=== PATIENT | female | born 1985 | race Caucasian/White ===

== ENCOUNTER 2016-05-11 04:36 | Emergency (ER) | payer OTHER ==
[~2016-05-11] VITALS: Ht 175.3 cm; Wt 72.6 kg
[2016-05-11 04:53] VITALS: BP 137/79
[2016-05-11 04:58] LABS: BILIRUBIN,URINE NEGATIVE (NEG); GLUCOSE,URINE NEGATIVE (NEG); NITRITE,URINE NEGATIVE (NEG); PH,URINE 5.5; PROTEIN,URINE NEGATIVE (NEG-TRACE); UROBILINOGEN,URINE 0.2 mg/dL (0.2 mg/dL)
[2016-05-11] MEDS ORDERED: KETOROLAC TROMETHAMINE 30 MG/ML SYRINGE. IV ONE (05:00)
[2016-05-11] MEDS ORDERED: IV NORMAL SALINE 500ML BAG 500 ML IV ONE (05:00)
--- NOTE | 2016-05-11 05:02 | PHYS DOC ---
Adult General Chief Complaint Chief Complaint: FLANK PAIN HPI HPI This is a 31 yo female who presents with right flank pain for the last two days. Pt states she just had a urinary tract infection and finished a course of Bactrim therapy which helped to relieve her dysuria type symptoms but then her right flank pain began two days after. She denies any nausea or vomiting. She rates her pain a 7/10 on the pain scale. She denies any abdominal pain. She states she is otherwise healthy and is not taking any medications. She denies any current dysuria or hematuria. Review of Systems Review of Systems Constitutional: Denies fever or chills [] Eyes: Denies change in visual acuity, redness, or eye pain [] HENT: Denies nasal congestion or sore throat [] Respiratory: Denies cough or shortness of breath [] Cardiovascular: No additional information not addressed in HPI [] GI: Denies abdominal pain, nausea, vomiting, bloody stools or diarrhea [] : Denies dysuria or hematuria [] Musculoskeletal: Denies back pain or joint pain [] Integument: Denies rash or skin lesions [] Neurologic: Denies headache, focal weakness or sensory changes [] Endocrine: Denies polyuria or polydipsia [] Current Medications Current Medications Current Medications Medications (Trade) Dose Ordered Sig/Shantal Start Time Stop Time Status Last Admin Dose Admin Ceftriaxone Sodium (Rocephin 1gm Ivpb For Omni) 50 ml @ 100 mls/hr 1X ONCE 05/11/16 06:00 05/11/16 06:29 DC 05/11/16 05:57 100 MLS/HR Ketorolac Tromethamine 30 mg 30 mg 1X ONCE 05/11/16 05:00 05/11/16 05:01 DC 05/11/16 05:11 30 MG Sodium Chloride (Iv Sodium Chloride 0.9% 500ml Bag) 500 ml @ 500 mls/hr 1X ONCE 05/11/16 05:00 05/11/16 05:59 DC 05/11/16 05:11 500 MLS/HR Allergies Allergies Allergies Coded Allergies Type Severity Reaction Last Updated Verified No Known Drug Allergies 05/11/16 No Physical Exam Physical Exam Constitutional: Well developed, well nourished, no acute distress, non-toxic appearance. [] HENT: Normocephalic, atraumatic, bilateral external ears normal, oropharynx moist, no oral exudates, nose normal. [] Eyes: PERRLA, EOMI, conjunctiva normal, no discharge. [] Neck: Normal range of motion, no tenderness, supple, no stridor. [] Cardiovascular:Heart rate regular rhythm, no murmur [] Lungs & Thorax: Bilateral breath sounds clear to auscultation [] Abdomen: Bowel sounds normal, soft, no tenderness, no masses, no pulsatile masses. [] Skin: Warm, dry, no erythema, no rash. [] Back: No tenderness, right CVA tenderness. [] Extremities: No tenderness, no cyanosis, no clubbing, ROM intact, no edema. [] Neurologic: Alert and oriented X 3, normal motor function, normal sensory function, no focal deficits noted. [] Psychologic: Affect normal, judgement normal, mood normal. [] Current Patient Data Vital Signs Vital Signs Date Time Temp Pulse Resp B/P Pulse Ox O2 Delivery O2 Flow Rate FiO2 05/11/16 04:53 107 18 137/79 98 Room Air Lab Values Laboratory Tests Test 05/11/16 04:40 05/11/16 04:54 05/11/16 05:00 Urine Collection Type Unknown Urine Color Yellow Urine Clarity Clear Urine pH 5.5 Urine Specific [place] 1.015 Urine Protein Negativemg/dL (NEG-TRACE) Urine Glucose (UA) Negativemg/dL (NEG) Urine Ketones (Stick) Negativemg/dL (NEG) Urine Blood Trace (NEG) Urine Nitrite Negative (NEG) Urine Bilirubin Negative (NEG) Urine Urobilinogen Dipstick 0.2mg/dL (0.2 mg/dL) Urine Leukocyte Esterase Small (NEG) Urine RBC 0/HPF (0-2) Urine WBC 20-40/HPF (0-4) Urine Squamous Epithelial Cells Many/LPF Urine Bacteria Moderate/HPF (0-FEW) Urine Mucus Mod/LPF POC Urine HCG, Qualitative Hcg negative (Negative) White Blood Count 8.9x10^3/uL (4.0-11.0) Red Blood Count 4.11x10^6/uL (3.50-5.40) Hemoglobin 12.2g/dL (12.0-15.5) Hematocrit 37.2% (36.0-47.0) Mean Corpuscular Volume 91fL (79-100) Mean Corpuscular Hemoglobin 30pg (25-35) Mean Corpuscular Hemoglobin Concent 33g/dL (31-37) Red Cell Distribution Width 14.3% (11.5-14.5) Platelet Count 245x10^3/uL (140-400) Neutrophils (%) (Auto) 78% (31-73) H Lymphocytes (%) (Auto) 13% (24-48) L Monocytes (%) (Auto) 8% (0-9) Eosinophils (%) (Auto) 1% (0-3) Basophils (%) (Auto) 1% (0-3) Neutrophils # (Auto) 6.9x10^3uL (1.8-7.7) Lymphocytes # (Auto) 1.2x10^3/uL (1.0-4.8) Monocytes # (Auto) 0.7x10^3/uL (0.0-1.1) Eosinophils # (Auto) 0.1x10^3/uL (0.0-0.7) Basophils # (Auto) 0.0x10^3/uL (0.0-0.2) Sodium Level 141mmol/L (136-145) Potassium Level 3.6mmol/L (3.5-5.1) Chloride Level 104mmol/L (98-107) Carbon Dioxide Level 26mmol/L (21-32) Anion Gap 11 (6-14) Blood Urea Nitrogen 12mg/dL (7-20) Creatinine 0.9mg/dL (0.6-1.0) Estimated GFR (Cockcroft-Gault) 72.1 Glucose Level 91mg/dL (70-99) Calcium Level 8.7mg/dL (8.5-10.1) Laboratory Tests 05/11/16 05:00 Laboratory Tests 05/11/16 05:00 EKG EKG [] Radiology/Procedures Radiology/Procedures [] Course & Med Decision Making Course & Med Decision Making Pertinent Labs and Imaging studies reviewed. (See chart for details) 31-year-old female who is otherwise healthy will be laboratory workup and an IV placed. She'll be given a fluid bolus and a dose of antibiotic therapy. She is likely displaying symptoms of a pyelonephritis. Her laboratory workup was unrevealing. A dose of IV Rocephin was given and administered. I will be discharged with a course of Keflex for 10 days and Zofran for nausea. Her pain was well controlled with Toradol only. I counseled her to continue to take Motrin for her symptoms and will be told to follow closely with her primary doctor and continue to stay well hydrated and to return to the ER in the next 2-3 days if her symptoms do not improve on oral antibiotic therapy. Dragon Disclaimer Dragon Disclaimer This electronic medical record was generated, in whole or in part, using a voice recognition dictation system. Departure Departure Impression: Primary Impression: Pyelonephritis Disposition: 01 HOME, SELF-CARE Admitting Physician: Other Condition: STABLE Patient Instructions: Pyelonephritis, Adult, [id number] Additional Instructions: Please take your antibiotics and motrin as prescribed. Follow up with your primary doctor in the next 2-3 days. Return to the ER if your symptoms have not improved in the next 2-3 days or if you develop any nausea or vomiting. Scripts Ibuprofen 800 Mg [id number] Mg PO PRN Q6HRS PRN INFLAMMATION #20 TAB Prov:TIFFANIE TORRES DO 05/11/16 Cephalexin (Keflex)500 Mg Capsule1 Cap PO TID #30 CAP Prov:TIFFANIE TORRES DO 05/11/16 Ondansetron Hcl (Zofran)4 Mg Tablet4 Mg PO BID PRN NAUSEA/VOMITING #10 TAB Prov:TIFFANIE TORRES DO 05/11/16 TIFFANIE TORRES DO May 11, 2016 05:02
[2016-05-11 05:16] LABS: BASO % 1 % (0-3); EOS % 1 % (0-3); HEMATOCRIT 37.2 % (36.0-47.0); HEMOGLOBIN 12.2 g/dL (12.0-15.5); LYMPH # 1.2 x10^3/uL (1.0-4.8); LYMPH % 13 % (24-48); MEAN CORPUSCULAR HEMOGLOBIN 30 pg (25-35); MEAN CORPUSCULAR HGB CONC 33 g/dL (31-37); MEAN CORPUSCULAR VOLUME 91 fL (79-100); MONO % 8 % (0-9); NEUT % 78 % (31-73); PLATELET COUNT 245 x10^3/uL (140-400); RED BLOOD COUNT 4.11 x10^6/uL (3.50-5.40); RED CELL DISTRIBUTION WIDTH 14.3 % (11.5-14.5); WHITE BLOOD COUNT 8.9 x10^3/uL (4.0-11.0)
[2016-05-11 05:20] LABS: BACTERIA,URINE MODERATE /HPF (0-FEW); RBC,URINE 0 /HPF (0-2); WBC,URINE 20-40 /HPF (0-4)
[2016-05-11 05:21] LABS: SQUAMOUS EPITHELIAL CELL,UR MANY /LPF
[2016-05-11 05:31] LABS: CALCIUM 8.7 mg/dL (8.5-10.1); CREATININE 0.9 mg/dL (0.6-1.0); GFR 72.1; POTASSIUM 3.6 mmol/L (3.5-5.1)
[2016-05-11] MEDS ORDERED: CEFTRIAXONE 1GM IVPB FOR OMNI 50 ML IV ONE (06:00)
[2016-05-11] MEDS ORDERED: ONDA4TAB7 PO (06:16)
[2016-05-11] MEDS ORDERED: CEPH-264 PO (06:16)
[2016-05-11] MEDS ORDERED: IBUP-1060 PO (06:17)
== END 2016-05-11 06:30 | disposition home or self-care (01) ==
LOC: ER 04:36
DX: N12 Tubulo-interstitial nephritis, not specified as acute or chronic (principal)
CPT/HCPCS: 36415; 80048; 81001; 81025; 85027; 87086; 96361; 96365; 96375; 99284; J0690; J1885; J7040; 87186